=== PATIENT | male | born 1960 | race Caucasian/White ===

== ENCOUNTER 2018-02-13 13:39 | Emergency (ER) | payer OTHER ==
[~2018-02-13] VITALS: Ht 177.8 cm; Wt 82.9 kg
[2018-02-13 13:41] VITALS: BP 166/92; PULSE 86; RESP 18; TEMP 97.3; O2SAT 98
[2018-02-13] MEDS ORDERED: LEVE500 PO (13:52)
--- NOTE | 2018-02-13 14:18 | PD ---
HPI Chief Complaint: Musculoskeletal Complaint Time Seen by Provider: 14:03 Travel History International Travel<30 days: No Contact w/Intl Traveler<30days: No Traveled to known affect area: No History of Present Illness HPI 57-year-old male here with right ankle pain 3 weeks. Reports he twisted the ankle 3 weeks ago after stepping in a local. He was evaluated [facility] and had x-rays that were "negative". He reports he was not given any splint or brace upon discharge. He reports pain localized to the lateral malleolus which is worse with weightbearing and movement. Relieved with rest. Symptom severity is moderate. Denies paresthesia or weakness of the extremity. PFSH Past Medical History Medical History: Denies Significant Hx Seizures: Yes Influenza Vaccination: Yes Social History Alcohol Use: No Tobacco Use: Yes (1/2 PPD) Substance Use: No Allergies-Medications (Allergen,Severity, Reaction): Coded Allergies: No Known Allergies (Unverified , 02/13/18) Reported Meds & Prescriptions Reported Meds & Active Scripts Active Reported Keppra (Levetiracetam) 500 Mg Tab 500 Mg PO BID Review of Systems Except as stated in HPI: all other systems reviewed are Neg General / Constitutional: No: Fever Eyes: No: Visual changes HENT: No: Headaches Cardiovascular: No: Chest Pain or Discomfort Respiratory: No: Shortness of Breath Gastrointestinal: No: Abdominal Pain Genitourinary: No: Dysuria Physical Exam Narrative GENERAL: Alert and well-appearing 57-year-old male SKIN: Warm and dry. HEAD: Normocephalic. EYES: No scleral icterus. No injection or drainage. NECK: Supple CARDIOVASCULAR: Regular rate and rhythm RESPIRATORY: Breath sounds equal bilaterally. No accessory muscle use. GASTROINTESTINAL: Abdomen soft, non-tender, nondistended. MUSCULOSKELETAL: No cyanosis. Right lower extremity: +TTP and swelling to the lateral malleolus. Can freely wiggle the toes. The joint is stable. 2+ DP pulse. Normal coloration. Brisk cap refill. BACK: Nontender without obvious deformity. No CVA tenderness. Data Data Last Documented VS Vital Signs Date Time Temp Pulse Resp B/P (MAP) Pulse Ox O2 Delivery O2 Flow Rate FiO2 02/13/18 13:41 97.3 86 18 166/92 (116) 98 Orders Orders Ankle, Complete ([id number]) (4/13/18 ) [facility] Medical Decision Making Medical Screen Exam Complete: Yes Emergency Medical Condition: Yes Differential Diagnosis Ankle sprain, ankle fracture, dislocation Narrative Course 57-year-old male here with right ankle pain 3 weeks after twisting injury. Extremities neurovascularly intact. X-ray negative for fracture. Ankle stirrup splint applied. Patient referred to orthopedic Diagnosis Primary Impression: Ankle sprain Qualified Codes: S93.401A - Sprain of unspecified ligament of right ankle, initial encounter Referrals: Orthopedist Primary Care Physician Additional Instructions: Ankle splint as directed. Follow-up with orthopedic doctor. Tylenol or ibuprofen for pain. Disposition: 01 DISCHARGE HOME Condition: Stable Alina Harden Feb 13, 2018 14:18
--- NOTE | 2018-02-13 14:38 | RADRPT ---
EXAM DATE/TIME: 02/13/2018 14:15 [place] COMPARISON: No previous studies available for comparison. INDICATIONS : Right ankle pain after twisting & falling approximately 3 weeks ago. MEDICAL HISTORY : None. SURGICAL HISTORY : None. ENCOUNTER: Initial ACUITY: 3 weeks PAIN SCORE: 8/10 LOCATION: Right medial ankle FINDINGS: Three view exam was performed of the right ankle. The bony structures are in normal alignment. No e vidence of fracture, dislocation, or soft tissue swelling. The ankle mortise is intact. No radiopaq ue foreign bodies are seen. Bony mineralization is normal. CONCLUSION: No acute disease. Sandip Lockett MD on February 13, 2018 at 14:35 Board Certified Radiologist. This report was verified electronically.
== END 2018-02-13 15:16 | disposition home or self-care (01) ==
LOC: PHEFT 13:39
DX: S93.401A Sprain of unspecified ligament of right ankle, initial encounter (principal); F17.210 Nicotine dependence, cigarettes, uncomplicated; X50.1XXA Overexertion from prolonged static or awkward postures, initial encounter; Z79.899 Other long term (current) drug therapy
CPT/HCPCS: 73610; 99283; L1906